=== PATIENT | female | born 1935 | race Caucasian/White ===

== ENCOUNTER → 2017-09-30 | Outpatient (CLI) | payer OTHER ==
[~2017-09-30] MED LIST: ACET325T96 PO; AMOX500T3 PO; ASPI81TA28 PO; FURO-85 PO; HUMALOG INJ; INSDGI INJ; LEVO200T PO; LOSA1TAB38 PO; ROSU40TA PO; VITAMIN B12 INJ
--- NOTE | 2017-09-30 15:35 | DIAGNOSTIC IMAGING REPORT ---
R INJ MAJOR GRACIELAT SHLDR,HIP,KNEE CLINICAL HISTORY: 82 years-old Female presenting with RT HIP PAIN,SWELLING *ASPIRATION. COMPARISON: None. PROCEDURE: The risks, benefits, and alternatives to the procedure were discussed with the patient. Written informed consent was obtained. The patient was placed supine on the fluoroscopy table, and a right hip aspiration was performed under fluoroscopic guidance. The area was prepped and draped in the usual sterile fashion. The skin and soft tissues anesthetized with local 1% lidocaine. The right hip joint was accessed utilizing a 20-gauge needle. An attempt at immediate aspiration yielded no fluid. Approximately 1 mL of Optiray 300 was injected into the joint space under fluoroscopic guidance to confirm intra-articular positioning. Subsequently, a 5 mL of sterile saline was injected into the joint. Again, aspiration did not yield return of fluid. The procedure was well tolerated without immediate complication. Fluoroscopy dosage (mGy): Not available. Fluoroscopy time: 15 seconds. Number of fluoroscopic spot images: 0. IMPRESSION: Technically successful aspiration attempt of the right hip under fluoroscopic guidance, although no return of fluid noted. Electronically signed by: Alvin Antunez M.D. 09/30/2017 3:34 PM Dictated Date/Time: 09/30/2017 3:32 PM
== END | disposition home or self-care (01) ==
LOC: C.RADBC 13:26
DX: Z96.641 Presence of right artificial hip joint (principal)

== ENCOUNTER 2017-10-04 08:14 | Inpatient (IN) | payer OTHER ==
[2017-09-30 09:21] VITALS: BMI 37.0
--- NOTE | 2017-09-30 09:59 | PAT Medication Instructions ---
Service Date Sep 30, 2017. Current Home Medication List Acetaminophen Tab (Tylenol), 650 MG PO BID PRN for RN Amoxicillin (Amoxil), 500 MG PO TID Aspirin (Aspirin Ec), 81 MG PO QAM Furosemide (Lasix), 20 MG PO 2-3XWEEK Insulin Glargine (Lantus), 40 UNITS INJ HS Levothyroxine Sodium (Synthroid), 200 MCG PO QAM Losartan Potassium (Cozaar), 100 MG PO QAM Rosuvastatin Calcium (Crestor), 40 MG PO HS [Humalog], 1 DOSE INJ SC [Vitamin B12], 1 DOSE INJ MONTHLY Medication Instructions For Your Scheduled Surgery Amoxicillin (Amoxil), 500 MG PO TID (to be completed prior to surgery) [Vitamin B12], 1 DOSE INJ MONTHLY (continue as directed) - Hold the following medications the morning of surgery: Losartan Potassium (Cozaar), 100 MG PO QAM Furosemide (Lasix), 20 MG PO 2-3XWEEK [Humalog], 1 DOSE INJ SC - Take the following medications the morning of surgery with a sip of water: Levothyroxine Sodium (Synthroid), 200 MCG PO QAM Aspirin (Aspirin Ec), 81 MG PO QAM Acetaminophen Tab (Tylenol), 650 MG PO BID PRN for RN (okay to take up to 4 hours prior to surgery if needed) - Take the following medications as scheduled the night before surgery: Rosuvastatin Calcium (Crestor), 40 MG PO HS Insulin Glargine (Lantus), 40 UNITS INJ HS Acetaminophen Tab (Tylenol), 650 MG PO BID PRN for RN (if needed) [Humalog], 1 DOSE INJ SC If you have any questions please call us at [phone] or [phone] or [phone]
[2017-09-30 10:16] LABS: PTT PATIENT 25.7 SECONDS (21.0-31.0)
[2017-09-30 10:27] LABS: ALBUMIN 3.1 gm/dl (3.4-5.0); CALCIUM 9.5 mg/dl (8.5-10.1); CREATININE 1.65 mg/dl (0.60-1.20); POTASSIUM 4.8 mmol/L (3.5-5.1)
[2017-09-30 10:47] LABS: HEMOGLOBIN A1C 6.7 % (4.5-5.6)
--- NOTE | 2017-10-02 15:38 | HISTORY & PHYSICAL EXAMINATION ---
DATE OF ADMISSION: 09/30/2017 CHIEF COMPLAINT: Right hip pain status post previous total hip arthroplasty. HISTORY OF PRESENT ILLNESS: The patient is an 82-year-old female who had her right total hip arthroplasty by an outside physician approximately 2 years ago. She has been seen and evaluated recently for increasing right hip pain. X-rays are grossly within normal limits. She had blood work with a normal CRP and a mildly elevated sed rate. She had attempted hip aspiration under fluoroscopy, but the radiologist was unable to aspirate any fluid. She had a bone scan, which was suggestive of possible loosening of the femoral component. She is now scheduled for a right total hip revision femoral stem, possible complete hip revision. PAST MEDICAL HISTORY: Bradycardia, type 2 diabetes, stage IV chronic kidney disease, depression, obesity, hyperlipidemia. PAST SURGICAL HISTORY: Right hip as above. MEDICATIONS: Synthroid 200 mcg daily, vitamin D 50,000 units weekly, furosemide 20 mg daily p.r.n., losartan potassium 100 mg half tablet daily, Humalog insulin per sliding scale, Lantus insulin 35 units at bedtime, Crestor 20 mg daily, aspirin 81 mg daily. ALLERGIES: INCLUDE ACTOS AND ZETIA. SOCIAL HISTORY AND REVIEW OF SYSTEMS: Noncontributory. PHYSICAL EXAMINATION: GENERAL: A well-nourished, well-developed female who appears her stated age. HEENT: Normocephalic and atraumatic, extraocular movements intact, oropharynx pink and moist. NECK: Supple without adenopathy. LUNGS: Clear to auscultation bilaterally. HEART: Regular rate and rhythm. ABDOMEN: Soft, nontender, nondistended. EXTREMITIES: The upper extremities within normal limits. The right hip demonstrates painful active and passive range of motion. X-RAYS: X-rays were reviewed. She has a total hip in place, which is grossly aligned. The bone scan is reviewed and shows increased uptake about the femoral aspect, possibly consistent with aseptic loosening of the femoral component. ASSESSMENT: Right hip pain status post previous hip arthroplasty, likely aseptic loosening femoral component. PLAN: Risks versus benefits were discussed, consent was obtained. The patient's primary care physician is Dr. Angeles. We will proceed with right hip arthroplasty revision femoral stem, possible complete revision upon preoperative workup and medical clearance.
[2017-10-04] VITALS (8 sets, daily range): BP systolic 116–154; BP diastolic 47–79; PULSE 51–61; TEMP 36.3–36.8; O2SAT 96–100; Ht 175.3 cm; Wt 113.8 kg
[~2017-10-04] VITALS: Ht 175.3 cm; Wt 113.8 kg
[2017-10-04] MEDS: TRANEXAMIC ACID INJ 1,000 MG in SYRINGE 0 ML IV SCH ×2 (06:30→11:05)
[~2017-10-04 08:14] MED LIST changes: +ACETAMINOPHEN 500 MG TAB PO SCH; +BUPIVACAINE 0.5 % 5 MG/1 ML PF 10ML VIAL ONE; +CEFAZOLIN 2000MG IV PUSH 10 ML IV SCH; +CeleBREX 200 MG CAP PO SCH; +DEXAMETHASONE 4 MG TAB PO SCH; +FAMOTIDINE 20 MG TAB PO SCH; +FENTANYL CITRATE INJ 50 MCG/1 ML 2 ML VIAL ONE; +GABAPENTIN 300 MG CAP PO SCH; +LACTATED RINGER'S 1000ML IV SCH; +METOCLOPRAMIDE HCL 10 MG TAB PO SCH; +MIDAZOLAM HCL 1 MG/ML 2ML VIAL ONE; +ROPIVACAINE 5MG/ML 30 ML 150 MG, BUPIVACAINE 0.5% MPF INJ 30 ML, EpINEphrine HCL INJ 0.... INFIL SCH; +SODIUM CHLORIDE 0.9% 1000ML 1,000 ML IV SCH; +TRANEXAMIC ACID INJ 1,000 MG in SYRINGE 0 ML IV SCH
--- NOTE | 2017-10-04 09:56 | History & Physical Bridge Note ---
H&P Re-Evaluation Bridge Note: I have examined the patient, reviewed the History & Physical and in the interval since the performance of the History & Physical I have noted the following changes of clinical significance: No changes noted
[2017-10-04] MEDS ORDERED: MIDAZOLAM HCL 1 MG/ML 2ML VIAL ONE (10:08)
[2017-10-04] MEDS ORDERED: LABETALOL HCL IV 5 MG/ML 20ML IV PRN (11:15)
[2017-10-04] MEDS ORDERED: ONDANSETRON INJ 2 MG/ML 2 ML VIAL IV PRN ×2 (11:15→13:15)
[2017-10-04] MEDS ORDERED: FENTANYL CITRATE INJ 50 MCG/1 ML 2 ML VIAL IV PRN (11:15)
[2017-10-04] MEDS ORDERED: HYDROmorphone INJ 1 MG/ML SYR IV PRN (11:15)
[2017-10-04] MEDS ORDERED: EpHEDrine SULFATE INJ 50 MG/ML AMP IV PRN (11:15)
[2017-10-04] MEDS ORDERED: ATROPINE SULFATE 0.1 MG/ML 5ML SYR IV PRN (11:15)
[2017-10-04] MEDS ORDERED: MEPERIDINE HCL 25 MG/ML CARP IV PRN (11:15)
[2017-10-04] MEDS ORDERED: BACITRACIN 50000 UNIT VIAL ONE (11:35)
[2017-10-04] MEDS ORDERED: POVIDONE-IODINE OP SOLN 30 ML BTL ONE (12:36)
--- NOTE | 2017-10-04 13:14 | OPERATIVE REPORT ---
DATE OF OPERATION: 10/04/2017 PREOPERATIVE DIAGNOSIS: Aseptic loosening, right total hip femur component. POSTOPERATIVE DIAGNOSIS: Aseptic loosening, right total hip femur component. PROCEDURE: Revision right femoral component. SURGEON: Dr. Gatica. STORAGE BATTERY INSPECTOR: Cachorro Pope PA-C. ANESTHESIA: Spinal. COMPLICATIONS: None. OPERATION AND FINDINGS: DESCRIPTION OF PROCEDURE: Following induction of spinal anesthesia, the patient was placed in left lateral decubitus position and the previously made right Gavin-Langenbeck incision was reopened. Subcutaneous tissue was sharply dissected. Electrocautery was used for hemostasis. Fascia was incised throughout the length of the wound and Bovie was carried down along the posterior aspect of the femur until the joint was encountered. Some cloudy joint fluid was noted and this was sampled for culture, Gram stain and cell count. The hip was dislocated and the femoral stem was found be grossly loose. Soft tissue was removed from the proximal end of the femur, exposing the femoral stem and a hook slap hammer was utilized to remove the stem which came immediately. Attention was turned to the acetabulum which was inspected and was found to be intact with no evidence of wear. The attention was then turned once again to the canal where reverse curettes were used to remove the pseudomembrane and brush pulsatile oceanographer assistant was used to additionally cleanse the canal. T-handled rasp was used to open the femoral canal and sequential raspings for the secure fit femoral stem were taken up to a size 7, which gave good fit and fill. A trial reduction was carried out with a 127-degree offset neck. The +0 x 36 mm femoral head gave good reproduction of soft tissue tension, excellent hip stability and equalization of leg length. The trial was removed. The final stem and head were impacted into position. Hip was thoroughly irrigated with pulsatile irrigation. Periarticular joint mix was utilized and the wound was closed over a Hemovac drain. Sterile dressing of Adaptic, 4x4s, and a Silverlon dressing was placed after closure of the skin with ZipLine. The patient tolerated the procedure well. I attest to the content of the Intraoperative Record and any orders documented therein. Any exception s are noted below.
[2017-10-04] MEDS ORDERED: MAGNESIUM HYDROXIDE SUSP 30 ML UDC PO PRN (13:15)
[2017-10-04] MEDS ORDERED: MoRPHine SULFATE 4 MG/ML 1 ML CARP\\VIAL IV PRN (13:15)
[2017-10-04] MEDS ORDERED: MoRPHine SULFATE 2 MG/ML CARP IV PRN (13:15)
[2017-10-04] MEDS ORDERED: TRAMADOL HCL 50 MG TAB PO PRN (13:15)
[2017-10-04] MEDS ORDERED: BISACODYL 10 MG SUPP PR PRN (13:15)
[2017-10-04] MEDS ORDERED: ALUMINUM/MAGNESIUM/SIMETH (MAALOX MAX) 30 ML UDC PO PRN (13:15)
--- NOTE | 2017-10-04 13:44 | DIAGNOSTIC IMAGING REPORT ---
R PELVIS/UNILATERAL HIP 1 VIEW HISTORY: 82 years-old Female IN PACU - A/P PELVIS and LATERAL HIP INCLUDING ALL OF IMPLANT status post right hip arthroplasty COMPARISON: None available TECHNIQUE: AP view the pelvis with crosstable lateral view of the right hip FINDINGS: The patient is slightly rotated. Postoperative changes compatible with right total hip arthroplasty are noted with surgical drain in place. There are expected changes of post operative soft tissue swelling and deep tissue air about the right hip. No evidence of periprosthetic fracture, malalignment or retained foreign body. Moderate degenerative changes of the left hip. Vascular calcifications noted. IMPRESSION: Status post right hip total joint arthroplasty without complication identified. The above report was generated using voice recognition software. It may contain grammatical, syntax or spelling errors. Electronically signed by: Trino Holm M.D. 10/04/2017 1:43 PM Dictated Date/Time: 10/04/2017 1:42 PM
--- NOTE | 2017-10-04 14:21 | Anesthesiology Progress Note ---
Anesthesia Post Op Note Date & Time Oct 04, 2017 at 14:20 Vital Signs Pain Intensity: 0 Vital Signs Past 12 Hours Date Time Temp Pulse Resp B/P (MAP) Pulse Ox O2 Delivery O2 Flow Rate FiO2 10/04/17 13:50 36.8 54 16 124/59 99 Nasal Cannula 2 10/04/17 13:40 50 16 116/49 99 Nasal Cannula 2 10/04/17 13:30 50 16 116/53 100 Nasal Cannula 2 10/04/17 13:20 52 16 130/46 100 Nasal Cannula 2 10/04/17 13:12 37.2 58 16 148/59 93 Room Air 10/04/17 09:09 36.8 61 18 154/55 99 Room Air Notes Mental Status: alert / awake / arousable, participated in evaluation Pt Amnestic to Procedure: Yes Nausea / Vomiting: adequately controlled Pain: adequately controlled Airway Patency, RR, SpO2: stable & adequate BP & HR: stable & adequate Hydration State: stable & adequate Neuraxial Anesthesia: was administered, sensory block is resolving Anesthetic Complications: no major complications apparent
[2017-10-04] MEDS: SODIUM CHLORIDE 0.9% 1000ML 1,000 ML IV SCH (16:04)
[2017-10-04] MEDS: ACETAMINOPHEN 500 MG TAB PO SCH ×2 (16:04→23:50)
--- NOTE | 2017-10-04 16:49 | Medical Consult ---
Consultation Date of Consultation: Oct 04, 2017. Attending Physician: Regino Gatica M.D. History of Present Illness Pmhx HLD, DM, CKD IV, hypothyroid, htn, Past Medical/Surgical History Ms. Bee is a very pleasant 82 year old woman here for revision of loosening hardware in her right hip 10/04. She does not have any complaints at this time, no pain or nausea. She is starting to get feeling back in her lower extremities. She has not started passing gas yet following surgery Social History Smoking Status: Former Smoker (light smoker until 28 years ago) Smokeless Tobacco Use: No Alcohol Use: none Housing Status: lives alone Occupation Status: retired Allergies Coded Allergies: Atorvastatin (Verified Allergy, Unknown, UNKNOWN, 09/30/17) Ezetimibe (Verified Allergy, Unknown, UNKNOWN, 09/30/17) Pioglitazone (Verified Allergy, Unknown, UNKNOWN, 09/30/17) Duloxetine (Verified Adverse Reaction, Intermediate, NAUSEA VOMITING, ) NSAIDs (Verified Adverse Reaction, Intermediate, STAGE 4 KIDNEY DISEASE- TO AVOID NSAIDS, 10/03/17) Current Inpatient Medications Current Inpatient Medications Medications (Trade) Dose Ordered Sig/Dago Route Start Time Stop Time Status Last Admin Dose Admin Sodium Chloride 1,000 ml @ 15 mls/hr Q24H IV 10/04/17 06:00 10/05/17 05:59 10/04/17 09:41 15 MLS/HR Lactated Ringer's 1,000 ml @ 60 mls/hr [id number] IV 10/04/17 06:00 10/04/17 22:39 Cefazolin Sodium 10 ml @ 2.5 mls/min PREOP IV 10/04/17 06:00 10/04/17 18:00 10/04/17 11:45 2.5 MLS/MIN Acetaminophen (Tylenol Tab) 1,000 mg PREOP PO 10/04/17 06:00 10/04/17 18:00 10/04/17 09:41 1,000 MG Celecoxib (CeleBREX CAP) 200 mg PREOP PO 10/04/17 06:00 10/04/17 18:00 10/04/17 09:42 200 MG Dexamethasone (Decadron Tab) 8 mg PREOP PO 10/04/17 06:00 10/04/17 18:00 10/04/17 09:43 8 MG Famotidine (Pepcid Tab) 20 mg PREOP PO 10/04/17 06:00 10/04/17 18:00 10/04/17 09:44 20 MG Gabapentin (Neurontin Cap) 300 mg PREOP PO 10/04/17 06:00 10/04/17 18:00 10/04/17 09:43 300 MG Metoclopramide HCl (Reglan Tab) 10 mg PREOP PO 10/04/17 06:00 10/04/17 18:00 10/04/17 09:43 10 MG Insulin Glargine (Lantus Solostar Pen) 40 units HS SQ 10/04/17 21:00 11/03/17 20:59 Levothyroxine Sodium (Synthroid Tab) 200 mcg DAILYBB PO 10/05/17 06:00 11/04/17 05:59 Losartan Potassium (coZAAR TAB) 100 mg QAM PO 10/05/17 09:00 11/04/17 08:59 Rosuvastatin Calcium (Crestor Tab) 40 mg HS PO 10/04/17 21:00 11/03/17 20:59 Morphine Sulfate (MoRPHine SULFATE INJ) 2 mg Q4HWA PRN IV 10/04/17 13:15 10/18/17 13:14 Morphine Sulfate (MoRPHine SULFATE INJ) 4 mg Q4HWA PRN IV 10/04/17 13:15 10/18/17 13:14 Sodium Chloride 1,000 ml @ 100 mls/hr Q10H IV 10/04/17 13:13 10/05/17 13:12 10/04/17 16:04 100 MLS/HR Oxycodone HCl (Roxicodone Immediate Rel Tab) 1 TABLET FOR PAIN RATING... Q4H PRN PO 10/04/17 13:15 10/18/17 13:14 Acetaminophen (Tylenol Tab) 1,000 mg Q8H PO 10/04/17 16:00 11/03/17 15:59 10/04/17 16:04 1,000 MG Magnesium Hydroxide (Milk Of Magnesia Susp) 30 ml Q6H PRN PO 10/04/17 13:15 11/03/17 13:14 Bisacodyl (Dulcolax Supp) 10 mg DAILY PRN AR 10/04/17 13:15 11/03/17 13:14 Senna (Senokot Tab) 17.2 mg HS PO 10/04/17 21:00 11/03/17 20:59 Docusate Sodium (coLACE CAP) 100 mg BID PO 10/04/17 21:00 11/03/17 20:59 Al Hydrox/Mg Hydrox/Simethicone (Maalox Max Susp) 15 ml Q4H PRN PO 10/04/17 13:15 11/03/17 13:14 Multivitamins (Multivitamin Tab) 1 tab QAM PO 10/05/17 09:00 11/04/17 08:59 Ondansetron HCl (Zofran Inj) 4 mg Q6H PRN IV 10/04/17 13:15 11/03/17 13:14 Ferrous Gluconate (Ferrous Gluconate Tab) 324 mg TIDM PO 10/04/17 17:45 11/03/17 17:59 Pantoprazole Sodium (Protonix Tab) 40 mg QAM PO 10/05/17 09:00 11/04/17 08:59 Tramadol HCl (Ultram Tab) 1 TABLET FOR PAIN RATING... Q4H PRN PO 10/04/17 13:15 11/03/17 13:14 Cefazolin Sodium 2000 mg/Syringe 10 ml @ 2.5 mls/min Q8H IV 10/04/17 20:00 10/05/17 04:03 Aspirin (Ecotrin Tab) 81 mg BID PO 10/04/17 21:00 11/03/17 20:59 Insulin Aspart (novoLOG ASPART) SLIDING SCALE PARAMETER ACHS SC 10/04/17 17:15 11/03/17 17:14 Review of Systems Constitutional: No fever, No chills Respiratory: No cough, No sputum, No shortness of breath Cardiovascular: No chest pain Abdomen: No pain, No nausea, No vomiting, No diarrhea Musculoskeletal: No joint pain Genitourinary - Female: No dysuria Physical Exam Date Time Temp Pulse Resp B/P (MAP) Pulse Ox O2 Delivery O2 Flow Rate FiO2 10/04/17 16:00 36.4 60 17 145/70 (95) 99 Room Air 10/04/17 15:00 36.6 56 16 133/75 (94) 100 Nasal Cannula 2.0 10/04/17 14:00 100 Nasal Cannula 2.0 10/04/17 14:00 36.3 51 18 116/47 (70) 100 Nasal Cannula 2.0 10/04/17 13:50 36.8 54 16 124/59 99 Nasal Cannula 2 10/04/17 13:40 50 16 116/49 99 Nasal Cannula 2 10/04/17 13:30 50 16 116/53 100 Nasal Cannula 2 10/04/17 13:20 52 16 130/46 100 Nasal Cannula 2 10/04/17 13:12 37.2 58 16 148/59 93 Room Air 10/04/17 09:09 36.8 61 18 154/55 99 Room Air General: no distress Eyes: normal inspection, PERLL Respiratory: chest non tender, clear to auscultation, normal breath sounds, no respiratory distress, no accessory muscle use Cardiac: regular rate and rhythm, no rub or gallop, no murmur, no edema, no jvd , weak pulses GI/: active bowel sounds, no abd pain or tenderness, soft, non distended Extremities: normal range of motion, normal strength, non tender Neuro/Psych: alert and oriented x 3, normal mood and affect Skin: normal color, dry Laboratory Results Last 24 Hours Test 10/04/17 09:18 10/04/17 13:20 Bedside Glucose 143 mg/dl 142 mg/dl Assessment & Plan Ms. Bee is a very pleasant 82 year old woman here for revision of loosening hardware in her right hip 10/04. 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 Discussed with Cande Aguilar NP and agree with findings and plan as documented in the note. Any exceptions or clarifications are listed here: None Pt is doing well post operatively, will have basal bolus insulin, continue to watch ckd and hold arb for one day vitals are stable car is regular lung is clear continue basal bolus insulin, follow Cr, and watch blood pressure while holding meds Documented By: Quique Meneses
[2017-10-04] MEDS: FERROUS GLUCONATE 324 MG TAB PO SCH (18:18)
[2017-10-04] MEDS: INSULIN ASPART 100 UNITS/ML 3 ML PEN SC SCH ×2 (18:29→21:00)
[2017-10-04] MEDS: CEFAZOLIN IV 2,000 MG in SYRINGE 0 ML IV SCH (19:48)
[2017-10-04] MEDS: ROSUVASTATIN CALCIUM 20 MG TAB PO SCH (20:54)
[2017-10-04] MEDS: ASPIRIN 81 MG ECTAB PO SCH (20:54)
[2017-10-04] MEDS: SENNA 8.6 MG TAB PO SCH (20:54)
[2017-10-04] MEDS: DOCUSATE SODIUM 100 MG CAP PO SCH (20:54)
[2017-10-04] MEDS: INSULIN GLARGINE SOLOSTAR 100 UNITS/ML 3 ML PEN SQ SCH (21:00)
[2017-10-05] MEDS: SODIUM CHLORIDE 0.9% 1000ML 1,000 ML IV SCH ×2 (01:44→08:55)
[2017-10-05] MEDS: CEFAZOLIN IV 2,000 MG in SYRINGE 0 ML IV SCH (03:51)
[2017-10-05 04:07] VITALS: BP 126/64; PULSE 54; TEMP 36.4; O2SAT 96
[2017-10-05] MEDS: LEVOTHYROXINE 200 MCG TAB PO SCH (05:36)
[2017-10-05 07:12] VITALS: BP 132/68; PULSE 59; TEMP 36.5; O2SAT 97
[2017-10-05] MEDS: ACETAMINOPHEN 500 MG TAB PO SCH ×3 (07:13→23:31)
[2017-10-05 08:10] LABS: BASO % 0.1 %; BASO ABS # 0.01 K/uL (0-0.2); HEMATOCRIT 33.4 % (37-47); HEMOGLOBIN 10.7 g/dL (12.0-16.0); IG# 0.05 K/uL (0.00-0.02); LYMPH ABS # 1.29 K/uL (1.2-3.4); MEAN CELL VOLUME 96.8 fL (80-100); MEAN PLATELET VOLUME 9.8 fL (7.4-10.4); MONO % 5.4 %; NEUT % 84.1 %; NEUT ABS # 10.87 K/uL (1.4-6.5); PLATELET COUNT 196 K/uL (130-400); RED CELL DISTRIBUTION WIDTH CV 14.3 % (11.5-14.5); RED CELL DISTRIBUTION WIDTH SD 50.7 fL (36.4-46.3); WHITE BLOOD COUNT 12.92 K/uL (4.8-10.8)
[2017-10-05 08:42] LABS: CALCIUM 8.5 mg/dl (8.5-10.1); CREATININE 1.77 mg/dl (0.60-1.20); POTASSIUM 4.6 mmol/L (3.5-5.1)
[2017-10-05] MEDS: ASPIRIN 81 MG ECTAB PO SCH ×2 (08:46→20:32)
[2017-10-05] MEDS: DOCUSATE SODIUM 100 MG CAP PO SCH ×2 (08:46→20:32)
[2017-10-05] MEDS: MULTIVITAMIN TAB PO SCH (08:46)
[2017-10-05] MEDS: FERROUS GLUCONATE 324 MG TAB PO SCH ×3 (08:47→17:33)
[2017-10-05] MEDS: PANTOprazole SOD 40 MG TAB PO SCH (08:47)
[2017-10-05] MEDS: OXYCODONE HCL IR 5 MG TAB (IMMEDIATE RELEASE) PO PRN (08:50)
[2017-10-05] MEDS: INSULIN ASPART 100 UNITS/ML 3 ML PEN SC SCH ×4 (08:53→21:56)
[2017-10-05] MEDS ORDERED: LOSARTAN POTASSIUM 50 MG TAB PO SCH (09:00)
--- NOTE | 2017-10-05 10:22 | Orthopedic Progress Note ---
Orthopedic Progress Note Date of Service Oct 05, 2017. Subjective Post OP Day: 2 Reports: feeling well, Denies: chest pain, SOB, nausea / vomiting, light headedness, calf pain Objective calves soft nontender, N/V intact, hip located, capillary refill less than 2 sec., dressing C/D/I, A&O x3, toes mobile Date Time Temp Pulse Resp B/P (MAP) Pulse Ox O2 Delivery O2 Flow Rate FiO2 10/05/17 07:15 Room Air 10/05/17 07:12 36.5 59 14 132/68 (89) 97 Room Air 10/05/17 04:07 36.4 54 18 126/64 (84) 96 Room Air 10/04/17 23:00 36.4 53 18 123/56 (78) 97 Room Air 10/04/17 19:58 36.4 54 17 121/74 (90) 96 Room Air 10/04/17 19:50 Room Air 10/04/17 17:09 36.8 54 16 142/79 (100) 100 Room Air 10/04/17 16:00 36.4 60 17 145/70 (95) 99 Room Air 10/04/17 15:40 100 Room Air 10/04/17 15:00 36.6 56 16 133/75 (94) 100 Nasal Cannula 2.0 10/04/17 14:00 100 Nasal Cannula 2.0 10/04/17 14:00 36.3 51 18 116/47 (70) 100 Nasal Cannula 2.0 10/04/17 13:50 36.8 54 16 124/59 99 Nasal Cannula 2 10/04/17 13:40 50 16 116/49 99 Nasal Cannula 2 10/04/17 13:30 50 16 116/53 100 Nasal Cannula 2 10/04/17 13:20 52 16 130/46 100 Nasal Cannula 2 10/04/17 13:12 37.2 58 16 148/59 93 Room Air Laboratory Results 24 Hours: Test 10/05/17 07:24 White Blood Count 12.92 K/uL Red Blood Count 3.45 M/uL Hemoglobin 10.7 g/dL Hematocrit 33.4 % Mean Corpuscular Volume 96.8 fL Mean Corpuscular Hemoglobin 31.0 pg Mean Corpuscular Hemoglobin Concent 32.0 g/dl Platelet Count 196 K/uL Mean Platelet Volume 9.8 fL Neutrophils (%) (Auto) 84.1 % Lymphocytes (%) (Auto) 10.0 % Monocytes (%) (Auto) 5.4 % Eosinophils (%) (Auto) 0.0 % Basophils (%) (Auto) 0.1 % Neutrophils # (Auto) 10.87 K/uL Lymphocytes # (Auto) 1.29 K/uL Monocytes # (Auto) 0.70 K/uL Eosinophils # (Auto) 0.00 K/uL Basophils # (Auto) 0.01 K/uL Assessment & Plan Assessment: POD#1 SP REVISION RIGHT RANDY Plan: PT/OT DVT PROPH- ASA 81MG BID PAIN MANAGEMENT DC PLANNING- [facility]
--- NOTE | 2017-10-05 11:23 | Hospitalist Progress Note ---
Hospitalist Progress Note Date of Service Oct 05, 2017. (Neris Weeks PA-C) Subjective Pt evaluation today including: conversation w/ patient, physical exam, chart review, lab review, review of studies Pain: R hip pain occassionally PO Intake: good Voiding: no voiding problems The patient was seen and examined this morning. Patient reports feeling well she is currently sitting upright in bedside chair. She reports her right hip pain is improving, she has been ambulating from bed to the bathroom without difficulty. She has been using a walker for assistance. The patient is from home, lives alone and anticipates going to [facility] for PT/OT in [place] at time of discharge. Patient denies bowel movement since surgery, which was approximately 2 days ago but she is passing gas. Patient notes that it is typical for her to not have a bowel movement more than every other day. She was encouraged to drink fluids, prune juice and continue stool softeners and fiber bulking agents while taking narcotics for pain. Additional Comments: Constitutional: No fever, sweats or chills Eyes: No diplopia, no worsening or blurred vision ENT: normal hearing, no trouble swallowing Respiratory: No cough, sputum, dyspnea at rest or on exertion Cardiovascular: No chest pain, tightness or palpitations Abdomen: No pain, nausea, vomiting, diarrhea or constipation Musculoskeletal: As per history of present illness, No joint pain, calf pain, occasionally has swelling in BLE, nonpitting. SCDs seem to be improving swelling. Neurologic: No weakness, numbness/tingling, or balance problems Psychiatric: No anxiety or depression Skin: No rash or itch (Neris Weeks PA-C) Objective Vital Signs Date Time Temp Pulse Resp B/P (MAP) Pulse Ox O2 Delivery O2 Flow Rate FiO2 10/05/17 07:15 Room Air 10/05/17 07:12 36.5 59 14 132/68 (89) 97 Room Air 10/05/17 04:07 36.4 54 18 126/64 (84) 96 Room Air 10/04/17 23:00 36.4 53 18 123/56 (78) 97 Room Air 10/04/17 19:58 36.4 54 17 121/74 (90) 96 Room Air 10/04/17 19:50 Room Air 10/04/17 17:09 36.8 54 16 142/79 (100) 100 Room Air 10/04/17 16:00 36.4 60 17 145/70 (95) 99 Room Air 10/04/17 15:40 100 Room Air 10/04/17 15:00 36.6 56 16 133/75 (94) 100 Nasal Cannula 2.0 10/04/17 14:00 100 Nasal Cannula 2.0 10/04/17 14:00 36.3 51 18 116/47 (70) 100 Nasal Cannula 2.0 10/04/17 13:50 36.8 54 16 124/59 99 Nasal Cannula 2 10/04/17 13:40 50 16 116/49 99 Nasal Cannula 2 10/04/17 13:30 50 16 116/53 100 Nasal Cannula 2 10/04/17 13:20 52 16 130/46 100 Nasal Cannula 2 10/04/17 13:12 37.2 58 16 148/59 93 Room Air (Neris Weeks PA-C) Physical Exam Notes: General: awake, alert, no apparent distress Head: Normocephalic, atraumatic ENT: PERRL, EOMI, no pharyngeal exudate, mucous membranes moist Chest: Clear to auscultation, on room air, no adventitious breath sounds Cardiac: Regular rate and rhythm, no murmur, no JVD, normal peripheral pulses, good capillary refill Abdominal: NABS x 4 quadrants, soft, nontender to palpation, no rebound, guarding or tenderness Extremities: Right hip with Hemovac drain in place, dressing C/D/I, otherwise normal inspection, no peripheral edema or erythema, calfs nontender to palpation mild BLE edema nonpitting Psych: Normal mood and affect Neuro: AAO x 3, strength intact bilaterally and related 5/5, no motor deficits, speech is clear, no peripheral sensory deficits (Neris Weeks PA-C) Laboratory Results Last 24 Hours Test 10/04/17 13:20 10/04/17 17:38 10/04/17 20:41 10/05/17 07:24 Bedside Glucose 142 mg/dl 243 mg/dl 277 mg/dl White Blood Count 12.92 K/uL Red Blood Count 3.45 M/uL Hemoglobin 10.7 g/dL Hematocrit 33.4 % Mean Corpuscular Volume 96.8 fL Mean Corpuscular Hemoglobin 31.0 pg Mean Corpuscular Hemoglobin Concent 32.0 g/dl Platelet Count 196 K/uL Mean Platelet Volume 9.8 fL Neutrophils (%) (Auto) 84.1 % Lymphocytes (%) (Auto) 10.0 % Monocytes (%) (Auto) 5.4 % Eosinophils (%) (Auto) 0.0 % Basophils (%) (Auto) 0.1 % Neutrophils # (Auto) 10.87 K/uL Lymphocytes # (Auto) 1.29 K/uL Monocytes # (Auto) 0.70 K/uL Eosinophils # (Auto) 0.00 K/uL Basophils # (Auto) 0.01 K/uL RDW Standard Deviation 50.7 fL RDW Coefficient of Variation 14.3 % Immature Granulocyte % (Auto) 0.4 % Immature Granulocyte # (Auto) 0.05 K/uL Sodium Level 137 mmol/L Potassium Level 4.6 mmol/L Chloride Level 108 mmol/L Carbon Dioxide Level 19 mmol/L Anion Gap 10.0 mmol/L Blood Urea Nitrogen 31 mg/dl Creatinine 1.77 mg/dl Est Creatinine Clear Calc Drug Dose 33.6 ml/min Estimated GFR () 30.7 Estimated GFR (Non- 26.5 BUN/Creatinine Ratio 17.5 Random Glucose 179 mg/dl Calcium Level 8.5 mg/dl Test 10/05/17 08:08 Bedside Glucose 154 mg/dl (Neris Weeks, ISAAC) Assessment and Plan Ms. Bee is a very pleasant 82 year old woman here for revision of loosening hardware in her right hip 10/04. Post op - monitor for blood loss - Hbg is stable at 10.7 - bowel regimen, dvt prophylaxis and pain control per primary - Anticipate discharge possibly on Saturday per patient report, to rehabilitation at [place] in [place]. DM - A1c 09/30= 6.7 - continue lantus 40 U HS - Sliding scale changed to tighten the carb coverage. She had slightly elevated glucose last evening but appears to be better today in 150s. If needed further tighten coverage - bsg ac&hs - continue gabapentin for diabetic neuropathy - patient had trialed Cymbalta in the beginning of August however suffered severe adverse effects with nausea and vomiting. She did see good improvement in neuropathy while being on the medication but was only able to tolerate it for 9-10 days. After that point she was hospitalized in [place] for severe dehydration and bradycardia secondary to nausea/vomiting. CKD IV - avoid nephrotoxic agents - Cr. 1.77 and appears to be around baseline. HTN - blood pressures well controlled, slightly bradycardic - restarted losartan 100 mg daily, and Crestor 40 mg daily Hypothyroid - continue home dose levothyroxine DVT ppx: ASA 81 mg BID, teds, scds CODE STATUS: FULL CODE (Neris Weeks, ISAAC) Reviewed: Pt Seen/Exam by Me (Janna Arce MD) History Physician Classification Counselor Supervision Note: I interviewed and examined the patient. Discussed with CAROLYN Weeks and agree with findings and plan as documented in the note. Any exceptions or clarifications are listed here: Pt doing very well, some soreness in rt hip. Denies CP. SHe has her usual chronic dyspnea on exertion. Review of outpt records reveals dx also of mild- mod nonobstructive CAD on cath 2014 after having abnormal Nuc Med Stress prior to last hip replacement. SHe is being medically managed by her Consulting Services Manager for this, but recently had to stop her metoprolol for the bradycardia mentioned above found at admission to [facility] for N/V last month. 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 Growing GNRs in culture from joint-to be managed by Ortho, not currently on abx- unclear if infection was suspected intraoperatively? Cloudy joint fluid noted in op report -System Specialist at baseline, ok to restart losartan as ordered for tomorrow -continue ASA, statin, losartan for CAD and HTN -hgb not significantly dropped, no need for transfusion likely -glucose improved today ASA 81 bid for DVT proph Documented By: Janna Arce (Janna Arce MD)
[2017-10-05 14:01] VITALS: BP 107/68; PULSE 58; TEMP 36.6; TEMP 36.7; O2SAT 97
[2017-10-05] MEDS ORDERED: GLUCAGON FOR INJ 1 MG VIAL SQ PRN (14:30)
[2017-10-05] MEDS ORDERED: DEXTROSE 50% 50 ML SYR IV PRN (14:30)
[2017-10-05] MEDS ORDERED: GLUCOSE 10 TABS/TUBE PO PRN (14:30)
[2017-10-05] MEDS ORDERED: GLUCOSE 40% GEL 15 GM TUBE PO PRN (14:30)
[2017-10-05 15:01] VITALS: BP 108/69; PULSE 47; TEMP 36.6; O2SAT 99
[2017-10-05 17:38] VITALS: PULSE 56; O2SAT 99
[2017-10-05] MEDS: ROSUVASTATIN CALCIUM 20 MG TAB PO SCH (20:32)
[2017-10-05] MEDS: SENNA 8.6 MG TAB PO SCH (20:33)
[2017-10-05] MEDS: INSULIN GLARGINE SOLOSTAR 100 UNITS/ML 3 ML PEN SQ SCH (21:57)
[2017-10-05 23:00] VITALS: BP 119/75; PULSE 52; TEMP 36.3; O2SAT 97
[2017-10-06] MEDS: LEVOTHYROXINE 200 MCG TAB PO SCH (05:37)
[2017-10-06 07:30] VITALS: BP 128/67; PULSE 60; TEMP 36.4; O2SAT 98
[2017-10-06 07:58] LABS: BASO % 0.2 %; BASO ABS # 0.02 K/uL (0-0.2); EOS % 0.5 %; EOS ABS # 0.06 K/uL (0-0.5); HEMOGLOBIN 11.5 g/dL (12.0-16.0); LYMPH % 10.2 %; LYMPH ABS # 1.32 K/uL (1.2-3.4); MEAN CELL VOLUME 96.2 fL (80-100); MEAN CORPUSCULAR HEMOGLOBIN 31.6 pg (25-34); MEAN CORPUSCULAR HGB CONC 32.9 g/dl (32-36); MEAN PLATELET VOLUME 10.1 fL (7.4-10.4); MONO % 9.4 %; MONO ABS # 1.21 K/uL (0.11-0.59); NEUT % 78.9 %; NEUT ABS # 10.23 K/uL (1.4-6.5); PLATELET COUNT 199 K/uL (130-400); RED CELL DISTRIBUTION WIDTH CV 14.6 % (11.5-14.5); RED CELL DISTRIBUTION WIDTH SD 51.2 fL (36.4-46.3); WHITE BLOOD COUNT 12.94 K/uL (4.8-10.8)
[2017-10-06] MEDS: INSULIN ASPART 100 UNITS/ML 3 ML PEN SC SCH ×4 (08:00→21:00)
[2017-10-06] MEDS: OXYCODONE HCL IR 5 MG TAB (IMMEDIATE RELEASE) PO PRN ×2 (08:14→18:52)
[2017-10-06] MEDS: FERROUS GLUCONATE 324 MG TAB PO SCH ×3 (08:15→17:45)
[2017-10-06] MEDS: PANTOprazole SOD 40 MG TAB PO SCH (08:15)
[2017-10-06] MEDS: MULTIVITAMIN TAB PO SCH (08:15)
[2017-10-06] MEDS: ACETAMINOPHEN 500 MG TAB PO SCH ×2 (08:15→15:18)
[2017-10-06] MEDS: ASPIRIN 81 MG ECTAB PO SCH ×2 (08:16→19:58)
[2017-10-06] MEDS: LOSARTAN POTASSIUM 50 MG TAB PO SCH (08:16)
[2017-10-06] MEDS: DOCUSATE SODIUM 100 MG CAP PO SCH ×2 (08:16→19:57)
--- NOTE | 2017-10-06 08:26 | Orthopedic Progress Note ---
Orthopedic Progress Note Date of Service Oct 06, 2017. Subjective Post OP Day: 2 Reports: feeling well, Denies: chest pain, SOB, nausea / vomiting, light headedness, calf pain Objective calves soft nontender, N/V intact, hip located, capillary refill less than 2 sec., dressing C/D/I, A&O x3, toes mobile Date Time Temp Pulse Resp B/P (MAP) Pulse Ox O2 Delivery O2 Flow Rate FiO2 10/06/17 07:30 36.4 60 16 128/67 (87) 98 Room Air 10/06/17 07:00 Room Air 10/05/17 23:35 Room Air 10/05/17 23:00 36.3 52 18 119/75 (90) 97 Room Air 10/05/17 17:38 56 99 Room Air 10/05/17 16:20 Room Air 10/05/17 15:01 36.6 47 17 108/69 (82) 99 Room Air 10/05/17 14:01 36.6 58 16 107/68 (81) 97 Room Air Laboratory Results 24 Hours: Test 10/06/17 07:33 White Blood Count 12.94 K/uL Red Blood Count 3.64 M/uL Hemoglobin 11.5 g/dL Hematocrit 35.0 % Mean Corpuscular Volume 96.2 fL Mean Corpuscular Hemoglobin 31.6 pg Mean Corpuscular Hemoglobin Concent 32.9 g/dl Platelet Count 199 K/uL Mean Platelet Volume 10.1 fL Neutrophils (%) (Auto) 78.9 % Lymphocytes (%) (Auto) 10.2 % Monocytes (%) (Auto) 9.4 % Eosinophils (%) (Auto) 0.5 % Basophils (%) (Auto) 0.2 % Neutrophils # (Auto) 10.23 K/uL Lymphocytes # (Auto) 1.32 K/uL Monocytes # (Auto) 1.21 K/uL Eosinophils # (Auto) 0.06 K/uL Basophils # (Auto) 0.02 K/uL Assessment & Plan Assessment: POD#2 SP REVISION RIGHT RANDY Plan: PT/OT DVT PROPH- ASA 81MG BID PAIN MANAGEMENT DC PLANNING- [facility]. HOPEFULY TRANSFER SATURDAY MEDICAL MANAGEMENT
[2017-10-06 08:44] LABS: CALCIUM 8.9 mg/dl (8.5-10.1); CREATININE 1.5 mg/dl (0.60-1.20); POTASSIUM 4.3 mmol/L (3.5-5.1)
--- NOTE | 2017-10-06 11:45 | Hospitalist Progress Note ---
Hospitalist Progress Note Date of Service Oct 06, 2017. (Neris Weeks PA-C) Subjective Pt evaluation today including: conversation w/ patient, conversation w/ family , physical exam, chart review, lab review, review of studies Pain: None PO Intake: Good Voiding: no voiding problems The patient was seen and examined this morning. Patient reports feeling well. Her family is present at bedside including her son, [id number] and granddaughter. She has had 3 loose bowel movements this morning after not having any bowel movement x3 days. She has been eating and drinking well. CM is assisting with discharge planning with possible rehabilitation at [facility] vs [facility] in [place]. Additional Comments: Constitutional: No fever, sweats or chills Eyes: No diplopia, no worsening or blurred vision ENT: normal hearing, no trouble swallowing Respiratory: No cough, sputum, dyspnea at rest or on exertion Cardiovascular: No chest pain, tightness or palpitations Abdomen: No pain, nausea, vomiting, diarrhea or constipation Musculoskeletal: No joint pain, calf pain, swelling Neurologic: No weakness, numbness/tingling, or balance problems Psychiatric: No anxiety or depression Skin: No rash or itch (Neris Weeks PA-C) Objective Vital Signs Date Time Temp Pulse Resp B/P (MAP) Pulse Ox O2 Delivery O2 Flow Rate FiO2 10/06/17 07:30 36.4 60 16 128/67 (87) 98 Room Air 10/06/17 07:00 Room Air 10/05/17 23:35 Room Air 10/05/17 23:00 36.3 52 18 119/75 (90) 97 Room Air 10/05/17 17:38 56 99 Room Air 10/05/17 16:20 Room Air 10/05/17 15:01 36.6 47 17 108/69 (82) 99 Room Air 10/05/17 14:01 36.6 58 16 107/68 (81) 97 Room Air (Neris Weeks PA-C) Physical Exam Notes: General: awake, alert, no apparent distress Head: Normocephalic, atraumatic ENT: PERRL, EOMI, no pharyngeal exudate, mucous membranes moist Chest: Clear to auscultation, on room air, no adventitious breath sounds Cardiac: Regular rate and rhythm, no murmur, no JVD, normal peripheral pulses, good capillary refill Abdominal: NABS x 4 quadrants, soft, nontender to palpation, no rebound, guarding or tenderness Extremities: Right hip with Hemovac out, dressing C/D/I, otherwise normal inspection, no peripheral edema or erythema, calfs nontender to palpation mild BLE edema nonpitting Psych: Normal mood and affect Neuro: AAO x 3, speech is clear, no peripheral sensory deficits (Neris Weeks, ISAAC) Laboratory Results Last 24 Hours Test 10/05/17 12:06 10/05/17 17:21 10/05/17 20:56 10/06/17 07:33 Bedside Glucose 194 mg/dl 170 mg/dl 223 mg/dl White Blood Count 12.94 K/uL Red Blood Count 3.64 M/uL Hemoglobin 11.5 g/dL Hematocrit 35.0 % Mean Corpuscular Volume 96.2 fL Mean Corpuscular Hemoglobin 31.6 pg Mean Corpuscular Hemoglobin Concent 32.9 g/dl Platelet Count 199 K/uL Mean Platelet Volume 10.1 fL Neutrophils (%) (Auto) 78.9 % Lymphocytes (%) (Auto) 10.2 % Monocytes (%) (Auto) 9.4 % Eosinophils (%) (Auto) 0.5 % Basophils (%) (Auto) 0.2 % Neutrophils # (Auto) 10.23 K/uL Lymphocytes # (Auto) 1.32 K/uL Monocytes # (Auto) 1.21 K/uL Eosinophils # (Auto) 0.06 K/uL Basophils # (Auto) 0.02 K/uL RDW Standard Deviation 51.2 fL RDW Coefficient of Variation 14.6 % Immature Granulocyte % (Auto) 0.8 % Immature Granulocyte # (Auto) 0.10 K/uL Sodium Level 142 mmol/L Potassium Level 4.3 mmol/L Chloride Level 112 mmol/L Carbon Dioxide Level 20 mmol/L Anion Gap 10.0 mmol/L Blood Urea Nitrogen 31 mg/dl Creatinine 1.50 mg/dl Est Creatinine Clear Calc Drug Dose 39.6 ml/min Estimated GFR () 37.5 Estimated GFR (Non- 32.3 BUN/Creatinine Ratio 20.9 Random Glucose 89 mg/dl Calcium Level 8.9 mg/dl Test 11/19/17 08:04 Bedside Glucose 76 mg/dl (Neris Weeks PA-C) Assessment and Plan Ms. Bee is a very pleasant 82 year old woman here for revision of loosening hardware in her right hip 10/04. Post op - monitor for blood loss - Hbg is stable at 10.7 - bowel regimen, dvt prophylaxis and pain control per primary - Anticipate discharge possibly on Saturday per patient report, to rehabilitation at [facility] in [place]. DM - A1c 09/30= 6.7 - continue lantus 40 U HS - Sliding scale changed to tighten the carb coverage. She had slightly elevated glucose last evening but appears to be better today in 150s. If needed further tighten coverage - bsg ac&hs - continue gabapentin for diabetic neuropathy - patient had trialed Cymbalta in the beginning of August however suffered severe adverse effects with nausea and vomiting. She did see good improvement in neuropathy while being on the medication but was only able to tolerate it for 9-10 days. After that point she was hospitalized in [place] for severe dehydration and bradycardia secondary to nausea/vomiting. CKD IV - avoid nephrotoxic agents - Cr. 1.77 and appears to be around baseline. CAD - mild to moderate without needs for stenting. She is on medical management with asa, erin and statin therapy. She was taken off metoprolol during admission in [place] about 2-3 weeks ago. HTN - blood pressures well controlled, slightly bradycardic - restarted losartan 100 mg daily, and Crestor 40 mg daily Hypothyroid - continue home dose levothyroxine DVT ppx: ASA 81 mg BID, teds, scds CODE STATUS: FULL CODE Disposition: From home, likely discharge tomorrow per primary service. Hospitalist team will sign off on this patient, thank you for involving us in Mrs. Bee's care. (Neris Weeks PA-C) Reviewed: Pt Seen/Exam by Me (Janna Arce MD) History Physician Innovation Manager Supervision Note: I interviewed and examined the patient. Discussed with CAROLYN Weeks and agree with findings and plan as documented in the note. Any exceptions or clarifications are listed here: Pt currently having chills and is shivering in her bed, asked for multiple heated blankets. Denies cough or SOB, no chest pain or calf pain. Denies urinary sxs. She has had several loose BMs today and feels like she has to go again now, no abd pain. Has been using her IS. Is growing GNRs in joint fluid culture, no ID yet. Afebrile so far. 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 Growing GNRs in culture from joint-to be managed by Ortho, not currently on abx- unclear if infection was suspected intraoperatively? Cloudy joint fluid noted in op report--> FOLLOW UP JOINT FLUID CULTURE -Making Machine Operator improved to baseline, ok to restart losartan -continue ASA, statin, losartan for CAD and HTN -hgb not significantly dropped, no need for transfusion likely -glucose improved ASA 81 bid for DVT proph -if has high fever, would recommend blood cultures, UA/Ur cx; checking C. diff antigen now for diarrhea -continue IS Documented By: Janna Arce (Janna Arce MD)
[2017-10-06 15:12] VITALS: BP 122/58; PULSE 64; TEMP 36.5; O2SAT 100
[2017-10-06 16:03] VITALS: TEMP 37
[2017-10-06 16:18] VITALS: TEMP 36.5
[2017-10-06 17:06] VITALS: TEMP 37.1
[2017-10-06] MEDS: SENNA 8.6 MG TAB PO SCH (19:57)
[2017-10-06] MEDS: ROSUVASTATIN CALCIUM 20 MG TAB PO SCH (19:58)
[2017-10-06] MEDS: INSULIN GLARGINE SOLOSTAR 100 UNITS/ML 3 ML PEN SQ SCH (21:51)
[2017-10-06 22:53] VITALS: BP 101/54; PULSE 73; TEMP 37; O2SAT 95
[2017-10-07] MEDS: ACETAMINOPHEN 500 MG TAB PO SCH ×4 (00:11→23:13)
[2017-10-07] MEDS: LEVOTHYROXINE 200 MCG TAB PO SCH (05:19)
[2017-10-07 07:47] VITALS: BP 104/67; PULSE 80; TEMP 37.2; O2SAT 95
[2017-10-07 07:50] VITALS: O2SAT 95
[2017-10-07] MEDS: INSULIN ASPART 100 UNITS/ML 3 ML PEN SC SCH ×4 (08:00→20:45)
--- NOTE | 2017-10-07 08:06 | Anesthesiology Progress Note ---
Anesthesia Post Op Note Date & Time Oct 07, 2017 at 08:06 Vital Signs Vital Signs Past 12 Hours Date Time Temp Pulse Resp B/P (MAP) Pulse Ox O2 Delivery O2 Flow Rate FiO2 10/07/17 07:50 95 Room Air 10/07/17 07:47 37.2 80 14 104/67 (79) 95 Room Air 10/06/17 22:53 37.0 73 18 101/54 (70) 95 Room Air 10/06/17 20:22 Room Air Notes Mental Status: alert / awake / arousable, participated in evaluation Pt Amnestic to Procedure: Yes Nausea / Vomiting: adequately controlled Pain: adequately controlled Airway Patency, RR, SpO2: stable & adequate BP & HR: stable & adequate Hydration State: stable & adequate Neuraxial Anesthesia: was administered, sensory block resolved Anesthetic Complications: no major complications apparent
[2017-10-07] MEDS: FERROUS GLUCONATE 324 MG TAB PO SCH ×3 (08:30→17:45)
[2017-10-07] MEDS: MULTIVITAMIN TAB PO SCH (09:00)
[2017-10-07] MEDS: PANTOprazole SOD 40 MG TAB PO SCH (09:00)
[2017-10-07] MEDS: DOCUSATE SODIUM 100 MG CAP PO SCH ×2 (09:00→21:00)
[2017-10-07] MEDS: LOSARTAN POTASSIUM 50 MG TAB PO SCH (09:00)
[2017-10-07] MEDS: ASPIRIN 81 MG ECTAB PO SCH ×2 (09:00→21:21)
--- NOTE | 2017-10-07 09:14 | Orthopedic Progress Note ---
Orthopedic Progress Note Date of Service Oct 07, 2017. Subjective Post OP Day: 3 Reports: feeling well Additional Notes: States she has some chills yesterday along with some diarrhea. Feeling a little better today. Pain controlled. I spoke with Dr Arce about pt's current joint culture taken during procedure. It now has come back positive for P.Aeruginosa that is pansensitive. Discussed with patient that she would need to likely be on 6 weeks of antibx. Pt understands. Objective calves soft nontender, splint C/D/I, incision C/D/I, A&O x3, toes mobile Date Time Temp Pulse Resp B/P (MAP) Pulse Ox O2 Delivery O2 Flow Rate FiO2 10/07/17 07:50 95 Room Air 10/07/17 07:47 37.2 80 14 104/67 (79) 95 Room Air 10/06/17 22:53 37.0 73 18 101/54 (70) 95 Room Air 10/06/17 20:22 Room Air 10/06/17 17:06 37.1 10/06/17 16:18 36.5 10/06/17 16:03 37.0 10/06/17 15:15 Room Air 10/06/17 15:12 36.5 64 18 122/58 (79) 100 Room Air Laboratory Results 24 Hours: Test 10/07/17 08:26 Assessment & Plan Assessment: POD# SP REVISION RIGHT RANDY INFECTED RIGHT RANDY Plan: I DISCUSSED THE CASE WITH DR LANDRY. NO FURTHER PLANS FOR SURGERY AT THIS TIME. WE WILL CONSULT ID TEAM WHO CAN MAKE FINAL DECISION ON ANTIBX. ANTIBX STARTED AT THIS TIME. WILL AWAIT RECOMMENDATIONS. CONTINUE PT/OT CONTINUE PLANS FOR SNF/REHAB CASE DISCUSSED WITH DR ARCE. APPRECIATE MED SERVICE COVERAGE.
--- NOTE | 2017-10-07 10:13 | Progress Note ---
Progress Note Date of Service Oct 07, 2017. Progress Note ID Consult Dictated #[id number] A/P: 1. Post op hip infection - pseudomonas -Continue cipro, can change to po when tolerating diet -Would give 4 weeks -Will check baseline sed rate -Continue local wound care -Can follow with ID post d/c\ -Thank you
[2017-10-07 10:29] LABS: HEMATOCRIT 35.2 % (37-47); HEMOGLOBIN 11.2 g/dL (12.0-16.0); MEAN CELL VOLUME 97.5 fL (80-100); MEAN CORPUSCULAR HGB CONC 31.8 g/dl (32-36); MEAN PLATELET VOLUME 9.8 fL (7.4-10.4); PLATELET COUNT 169 K/uL (130-400); RED CELL DISTRIBUTION WIDTH CV 15.1 % (11.5-14.5); RED CELL DISTRIBUTION WIDTH SD 53.3 fL (36.4-46.3); WHITE BLOOD COUNT 7.64 K/uL (4.8-10.8)
[2017-10-07 10:53] LABS: CALCIUM 8.2 mg/dl (8.5-10.1); CREATININE 1.52 mg/dl (0.60-1.20); POTASSIUM 4.5 mmol/L (3.5-5.1)
[2017-10-07 11:25] VITALS: BP 125/59; PULSE 70; TEMP 37.1; O2SAT 96
--- NOTE | 2017-10-07 11:54 | INFECT. DISEASE CONSULTATION ---
DATE OF CONSULTATION: 10/07/2017 HISTORY OF PRESENT ILLNESS: This is an 82-year-old female who was admitted electively for a revision of right hip replacement. She states that she had her right hip surgery done 2 years ago and intermittently has been having increasing pain. She recently saw Dr. Gatica for a second opinion and it was decided that she would require revision secondary to loosening hardware and persistent pain. This was scheduled electively for the . She underwent the procedure without difficulty. In the OR, some cloudy fluid was encountered and cultures were obtained. These are growing pansensitive pseudomonas. The patient is currently on IV Cipro. She states overall she is feeling much better. She denies any fevers or chills. She does states she believes she had an infection in the hip previously, but states she was not on any antibiotics at the time of admission. She has no fevers or chills. She states she has minimal pain in the hip. She was out of bed to chair this morning and did have some nausea. She is feeling much better now that she is back in bed. She did not eat breakfast. She did have an elevated leukocytosis on the of 12.9, but this was postoperative. checked her creatinine as well. It is mildly elevated and appears to be chronic. She currently denies any cough, chest pain, shortness of breath or diarrhea. She has minimal nausea, but states overall this is improved since getting back to bed. She denies any abdominal pain. She has minimal pain in the hip and only with movement. All remaining review of systems is reviewed and is unremarkable. She is tolerating antibiotics. SOCIAL HISTORY: Significant for a history of tobacco use. She denies any alcohol or drug use. ALLERGIES: SHE IS ALLERGIC TO ATORVASTATIN, EZETIMIBE, PIOGLITAZONE, DULOXETINE, AND NSAIDS. PAST MEDICAL HISTORY: Significant for hip replacement, type 2 diabetes, chronic kidney disease, hypertension and hypothyroidism. CURRENT MEDICATIONS: Include Cipro, Cozaar, glucagon, multivitamins, Protonix, Synthroid, Lantus, Crestor, Senokot, Colace, aspirin, iron, insulin, Tylenol, morphine, oxycodone, Dulcolax, Maalox, Zofran and tramadol. PHYSICAL EXAMINATION: VITAL SIGNS: She is afebrile, pulse 80, respiratory rate 14, blood pressure 104/67, and oxygen saturation is 95% on room air. GENERAL: She is awake, alert and oriented x3. She is in no acute distress. HEENT: Mucous membranes are moist. Extraocular muscles are intact. HEART: Regular. LUNGS: Clear. ABDOMEN: Soft, nontender, and nondistended. There is no edema bilaterally. SKIN: Without rash. PELVIC: Examination of the right hip reveals amarilis to be clean, dry and intact. There is a dressing on the inferior portion of her wound, which is clean, dry and intact. There is no surrounding warmth, tenderness, fluctuance, induration, erythema, or edema. LABORATORY STUDIES: CBC yesterday reveals a white blood cell count of 12.9, hemoglobin 11.5, and platelets 199. Chemistry panel on the reveals a sodium of 142, potassium 4.3, chloride 112, bicarbonate 20, BUN 31, creatinine 1.5, and glucose 124. UA was negative on admission. C. diff was negative on the . OR culture from the is growing pansensitive pseudomonas. Hip x-ray done on the shows postop alignment of hardware. ASSESSMENT AND PLAN: Right hip infection with pseudomonas. At this time, she will remain on Cipro that can be changed to oral. If she is tolerating her diet, she will likely need a minimum of 4 weeks. She certainly can follow with ID post-discharge from the hospital. A baseline sed rate will be checked at this time. Thank you for this consultation. ROSALIND
[2017-10-07] MEDS: CIPROFLOXACIN / D5W 400 MG in PREMIXED IN D5W 200 ML IV SCH ×2 (12:05→21:20)
[2017-10-07 13:37] VITALS: BP 118/68; PULSE 79; O2SAT 97
--- NOTE | 2017-10-07 14:37 | Discharge Instructions ---
Discharge Instructions Date of Service Oct 07, 2017. Admission Reason for Admission: Right Hip Osteoarthritis Discharge Discharge Diagnosis / Problem: Loosening Right RANDY likely due to infection Discharge Goals Goal(s): Decrease discomfort, Improve function, Increase independence Activity Recommendations Activity Level: Assistance Required Therapies: Physical Therapy (RANDY protocols/precautions), Occupational Therapy ( ADL) Weightbearing Status: Right weightbearing (as tolerated) . Additional Information Patient informed of condition: Yes Advance Directives: Yes DNR: No Level of Care: Skilled Communicable Disease: No Prognosis: Stable Parry Catheter: No Instructions / Follow-Up Instructions / Follow-Up ACTIVITY RECOMMENDATIONS: SELF CARE INSTRUCTIONS AFTER TOTAL HIP REPLACEMENT Until the incision and soft tissues around your hip have healed, there is a possibility that the hip prosthesis could dislocate. A. Observe the following precautions to prevent dislocation: 1. Don't bend your hip greater than 90 degrees. 2. Avoid crossing your legs or ankles while standing or lying. 3. Sit with your feet placed 6 inches apart. 4. When sitting, keep your knees below your hips. Sit on a firm surface, avoid deep, soft chairs and couches. Use an elevated toilet seat in the bathroom. 5. Don't bend over at the waist. Use a long handled shoehorn and a sock aid to help you put on your shoes and socks. A project management can help you waste picker objects that are too high or too low to reach. 6. Keep car riding to a minimum for at least one month after surgery. B. Your balance may be shaky for a while. Use crutches or a walker until directed by your doctor. C. Use hand rails when walking on stairs. D. Wear low heeled shoes with non-slip soles. E. Be sure that your floors are free of things that could trip you - throw rugs , electrical cords, small objects. Avoid wet and waxed floors, especially with crutches and canes. F. Try to walk several times a day with rest periods between. G. Continue with all the exercises taught to you in the hospital. Again, make walking a part of your daily routine. SPECIAL CARE INSTRUCTIONS: VERY IMPORTANT TO READ AND REVIEW A. You may still be at risk for phlebitis and blood clots. 1. Wear surgical stockings (ABHISHEK hose) for 2 weeks after surgery to improve circulation and reduce swelling. 2. Take Aspirin 81mg twice daily for 4 weeks or as directed by your doctor. This is your blood thinner. 3. High risk patients may be prescribed a stronger blood thinner if necessary. 4. If you are on Coumadin normally, your family doctor/lip reading teacher should monitor your blood work. Expect a phone call the day of or the day after bloodwork is drawn to adjust your dosage. B. You must take antibiotics before having dental work, bladder, bowel and other surgery. Your doctor will provide you with a permanent card to carry describing precautions. C. Call [facility] if you have a fever, redness or swelling around the incision, cloudy drainage from incision, or sudden increase in pain in your hip, not relieved by your regular pain medication. D. Please call the office at if you have any concerns or questions about your operation or recovery. * YOU MAY SHOWER, NO TUB BATHS UNTIL CLEARED BY YOUR DOCTOR. * WEAR ABHISHEK HOSE 20 HOURS PER DAY FOR 2 WEEKS. * YOU SHOULD USE A WALKER OR CRUTCHES FOR 2-4 WEEKS. THIS WILL HELP PREVENT STRAIN ON YOUR HIP MUSCLE AND ALLOW IT TO HEAL PROPERLY. YOU MAY WEAN TO A CANE TOLERATED. * MOST PATIENTS WILL HAVE HOME NURSING FOR THERAPY. IF YOU DECIDE TO DO OUTPATIENT PHYSICAL THERAPY, PLEASE SCHEDULE THIS 3 TIMES PER WEEK. * DRESSING CHANGE DAILY. IF WOUND IS DRY, YOU MAY LEAVE TO THE OPEN AIR . FOLLOW UP VISIT: If appointment is not already scheduled: Please call [facility] to make a follow-up appointment for 2 weeks after your surgery at . Current Hospital Diet Patient's current hospital diet: Diabetes Type 2 Diet Discharge Diet Recommended Diet: Diabetes Type 2 Diet Procedures Procedures Performed: Femoral head and stem revision, right hip Pending Studies Studies pending at discharge: no Physician Orders On Transfer Dressing Changes: DAILY Vital Signs: ROUTINE Laboratory Results Hemoglobin A1c Test 09/30/17 09:00 Range/Units Estimated Average Glucose 146 mg/dl Hemoglobin A1c 6.7 H 4.5-5.6 % Medical Emergencies . Who to Call and When: Medical Emergencies: If at any time you feel your situation is an emergency, please call 911 immediately. . Non-Emergent Contact Non-Emergency issues call your: Surgeon Call Non-Emergent contact if: temperature is above 101.5, your pain is not controlled, your pain is worsening, wound has increased drainage, wound has increased redness . . "Provider Documentation" section prepared by Cachorro Pope. . Core Measure Problem Core Measures: None [place] Drug Monitoring Program Search Results: patient reviewed within database, no issues identified
[2017-10-07] MEDS ORDERED: ACET-24 PO (14:41)
[2017-10-07] MEDS ORDERED: PRT40 PO (14:41)
[2017-10-07] MEDS ORDERED: ASPI81TA28 PO (14:41)
[2017-10-07] MEDS ORDERED: CLC100 PO (14:41)
[2017-10-07] MEDS ORDERED: RXC5 PO (14:41)
[2017-10-07] MEDS ORDERED: CIPR-255 PO (14:41)
[2017-10-07 15:05] VITALS: BP 102/65; PULSE 68; TEMP 37.1; O2SAT 97
--- NOTE | 2017-10-07 18:30 | Family Medicine Progress Note ---
Progress Note Date of Service Oct 07, 2017. Subjective Pt evaluation today including: conversation w/ patient, physical exam, chart review, lab review, review of inpatient medication list Pain: Minimal pain reported in right hip PO Intake: Tolerating PO intake Voiding: no voiding problems Ms. Bee states she had an episode of vomiting this morning after her breakfast. She had diarrhea yesterday but has not had any episodes of diarrhea today. She also reports feeling unwell with chills yesterday and today. Otherwise, she states the pain is well controlled in her right hip and she is able to weight bear. Constitutional: + chills, No weakness, No fatigue Respiratory: No cough, No sputum, No wheezing, No shortness of breath Cardiovascular: No chest pain, No orthopnea, No PND Abdomen: No pain, No nausea, No vomiting, No diarrhea All Other Systems: Reviewed and Negative Medications Current Inpatient Medications Medications (Trade) Dose Ordered Sig/Dago Route Start Time Stop Time Status Last Admin Dose Admin Insulin Glargine (Lantus Solostar Pen) 40 units HS SQ 10/04/17 21:00 11/03/17 20:59 10/06/17 21:51 40 UNITS Levothyroxine Sodium (Synthroid Tab) 200 mcg DAILYBB PO 10/05/17 06:00 11/04/17 05:59 10/07/17 05:19 200 MCG Rosuvastatin Calcium (Crestor Tab) 40 mg HS PO 10/04/17 21:00 11/03/17 20:59 10/06/17 19:58 40 MG Morphine Sulfate (MoRPHine SULFATE INJ) 2 mg Q4HWA PRN IV 10/04/17 13:15 10/18/17 13:14 Morphine Sulfate (MoRPHine SULFATE INJ) 4 mg Q4HWA PRN IV 10/04/17 13:15 10/18/17 13:14 Oxycodone HCl (Roxicodone Immediate Rel Tab) 1 TABLET FOR PAIN RATING... Q4H PRN PO 10/04/17 13:15 10/18/17 13:14 10/06/17 18:52 5 MG Acetaminophen (Tylenol Tab) 1,000 mg Q8H PO 10/04/17 16:00 11/03/17 15:59 10/07/17 15:44 1,000 MG Magnesium Hydroxide (Milk Of Magnesia Susp) 30 ml Q6H PRN PO 10/04/17 13:15 11/03/17 13:14 Bisacodyl (Dulcolax Supp) 10 mg DAILY PRN OR 10/04/17 13:15 11/03/17 13:14 Senna (Senokot Tab) 17.2 mg HS PO 10/04/17 21:00 11/03/17 20:59 10/05/17 20:33 17.2 MG Docusate Sodium (coLACE CAP) 100 mg BID PO 10/04/17 21:00 11/03/17 20:59 10/05/17 20:32 100 MG Al Hydrox/Mg Hydrox/Simethicone (Maalox Max Susp) 15 ml Q4H PRN PO 10/04/17 13:15 11/03/17 13:14 Multivitamins (Multivitamin Tab) 1 tab QAM PO 10/05/17 09:00 11/04/17 08:59 10/06/17 08:15 1 TAB Ondansetron HCl (Zofran Inj) 4 mg Q6H PRN IV 10/04/17 13:15 11/03/17 13:14 10/07/17 12:05 4 MG Ferrous Gluconate (Ferrous Gluconate Tab) 324 mg TIDM PO 10/04/17 17:45 11/03/17 17:59 10/06/17 12:32 324 MG Pantoprazole Sodium (Protonix Tab) 40 mg QAM PO 10/05/17 09:00 11/04/17 08:59 10/06/17 08:15 40 MG Tramadol HCl (Ultram Tab) 1 TABLET FOR PAIN RATING... Q4H PRN PO 10/04/17 13:15 11/03/17 13:14 Aspirin (Ecotrin Tab) 81 mg BID PO 10/04/17 21:00 11/03/17 20:59 10/06/17 19:58 81 MG Insulin Aspart (novoLOG ASPART) SLIDING SCALE PARAMETER ACHS SC 10/04/17 17:15 11/03/17 17:14 10/06/17 18:30 1 UNITS Losartan Potassium (coZAAR TAB) 100 mg QAM PO 10/06/17 09:00 11/04/17 08:59 10/06/17 08:16 100 MG Glucose (Glucose 40% Gel) 15-30 GRAMS 15 GRAMS... UD PRN PO 10/05/17 14:30 11/04/17 14:29 Glucose (Glucose Chew Tab) 4-8 Tablets 4 Tabl... UD PRN PO 10/05/17 14:30 11/04/17 14:29 Dextrose (Dextrose 50% 50ML Syringe) 25-50ML OF 50% DW IV FOR... UD PRN IV 10/05/17 14:30 11/04/17 14:29 Glucagon (Glucagon Inj) 1 mg UD PRN SQ 10/05/17 14:30 11/04/17 14:29 Ciprofloxacin/ Dextrose 400 mg/ Prmx 200 ml @ 100 mls/hr Q12@0900,2100 IV 10/07/17 09:00 11/18/17 08:59 10/07/17 12:05 100 MLS/HR Objective Vital Signs Date Time Temp Pulse Resp B/P (MAP) Pulse Ox O2 Delivery O2 Flow Rate FiO2 10/07/17 15:10 Room Air 10/07/17 15:05 37.1 68 18 102/65 (77) 97 Room Air 10/07/17 13:37 79 97 10/07/17 11:25 37.1 70 16 125/59 (81) 96 Room Air 10/07/17 08:30 Room Air 10/07/17 07:50 95 Room Air 10/07/17 07:47 37.2 80 14 104/67 (79) 95 Room Air 10/06/17 22:53 37.0 73 18 101/54 (70) 95 Room Air 10/06/17 20:22 Room Air Physical Exam General Appearance: WD/WN, no apparent distress Respiratory/Chest: chest non-tender, lungs clear, normal breath sounds, no respiratory distress, no accessory muscle use Cardiovascular: regular rate, rhythm, no edema, no gallop, no JVD, no murmur Abdomen: normal bowel sounds, non tender, soft, no organomegaly, no pulsatile mass Extremities: + pertinent finding (right hip with amarilis in place. no erythema or drainage from wound) Laboratory Results Last 24 Hours Test 10/06/17 21:08 10/07/17 08:18 10/07/17 09:55 10/07/17 11:44 Bedside Glucose 111 mg/dl 77 mg/dl 89 mg/dl White Blood Count 7.64 K/uL Red Blood Count 3.61 M/uL Hemoglobin 11.2 g/dL Hematocrit 35.2 % Mean Corpuscular Volume 97.5 fL Mean Corpuscular Hemoglobin 31.0 pg Mean Corpuscular Hemoglobin Concent 31.8 g/dl RDW Standard Deviation 53.3 fL RDW Coefficient of Variation 15.1 % Platelet Count 169 K/uL Mean Platelet Volume 9.8 fL Erythrocyte Sedimentation Rate 48 mm/hr Sodium Level 137 mmol/L Potassium Level 4.5 mmol/L Chloride Level 107 mmol/L Carbon Dioxide Level 21 mmol/L Anion Gap 9.0 mmol/L Blood Urea Nitrogen 28 mg/dl Creatinine 1.52 mg/dl Est Creatinine Clear Calc Drug Dose 39.1 ml/min Estimated GFR () 36.9 Estimated GFR (Non- 31.8 BUN/Creatinine Ratio 18.2 Random Glucose 95 mg/dl Calcium Level 8.2 mg/dl Test 10/07/17 16:59 Bedside Glucose 73 mg/dl Assessment and Plan Ms. Bee is a steve 82 year old woman here for revision of loosening hardware in her right hip 10/04. Post op - hemoglobin stable at 11.5 - bowels moving, pain well controlled - discharge likely tomorrow rehabilitation at [facility] in [place]. - joint aspirate grew pseudomonas - receiving IV cipro now and will switch to 500mg Q12H for 28 days - this dosage was cleared with pharmacy given her decreased kidney function DM - A1c 09/30= 6.7 - continue lantus 40 U HS and sliding scale - glucose between 73 and 11 - bsg ac&hs - continue gabapentin for diabetic neuropathy CKD IV - avoid nephrotoxic agents - Creatinine improved from 1.77 to 1.5 CAD - mild to moderate without need for stenting - medically managed with asa, erin and statin therapy. - metoprolol d/jericho in [place] about 2-3 weeks ago after admission there HTN - continue losartan 100 mg daily, and Crestor 40 mg daily Hypothyroid - continue home dose levothyroxine VTE Prophylaxis: ASA 81 mg BID, teds, scds CODE STATUS: FULL CODE Disposition: d/c tomorrow Resident Tracking Resident Involvement: Resident Care Provided Care Provided: Adult Hospital Medicine Reviewed: Pt Seen/Exam by Me History Resident Physician Supervision Note: I interviewed and examined the patient. Discussed with Dr. Gonzales and agree with findings and plan as documented in the note. Any exceptions or clarifications are listed here: Remains afebrile, no more chills today. Had N/V this AM which is now completely resolved. No abd pain, doing well. Growing Pseudomonas on joint fluid culture. DIscussed case with Ortho PA today. Vitals reviewed NAD, obese RRR no mgr CTAB no wcr ABd +BS, soft NT ND Ext no edema, calves nontender, rt hip incision with amarilis in place, no erythema or drainage from wound 82 yo female with a h/o HTN, obesity, DMII, nonobstructive CAD, hypothyroidism, CKD stage III (baseline instructional support services director 1.7 in outpt records), here POD#3 s/p revision right RANDY. 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
[2017-10-07] MEDS ORDERED: FURO-85 PO (18:41)
[2017-10-07] MEDS: INSULIN GLARGINE SOLOSTAR 100 UNITS/ML 3 ML PEN SQ SCH (21:00)
[2017-10-07] MEDS: SENNA 8.6 MG TAB PO SCH (21:00)
[2017-10-07] MEDS: ROSUVASTATIN CALCIUM 20 MG TAB PO SCH (21:22)
[2017-10-07 23:00] VITALS: BP 136/78; PULSE 68; TEMP 36.7; O2SAT 99
[2017-10-08] MEDS: LEVOTHYROXINE 200 MCG TAB PO SCH (05:55)
[2017-10-08 06:21] LABS: HEMATOCRIT 35.3 % (37-47); HEMOGLOBIN 11.1 g/dL (12.0-16.0); MEAN CELL VOLUME 98.1 fL (80-100); MEAN CORPUSCULAR HEMOGLOBIN 30.8 pg (25-34); MEAN CORPUSCULAR HGB CONC 31.4 g/dl (32-36); MEAN PLATELET VOLUME 9.4 fL (7.4-10.4); PLATELET COUNT 164 K/uL (130-400); RED CELL DISTRIBUTION WIDTH SD 53.3 fL (36.4-46.3)
[2017-10-08 06:52] LABS: CALCIUM 8.2 mg/dl (8.5-10.1); CREATININE 1.51 mg/dl (0.60-1.20)
[2017-10-08 07:10] VITALS: BP 116/58; PULSE 67; TEMP 36.8; O2SAT 97
--- NOTE | 2017-10-08 07:50 | Orthopedic Progress Note ---
Orthopedic Progress Note Date of Service Oct 08, 2017. Subjective Post OP Day: 4 Reports: feeling well, Denies: complaints Additional Notes: No more episodes of chills/ nausea. Feeling well this AM. Changed dc plans to [facility]. Objective calves soft nontender, N/V intact, hip located, incision C/D/I, A&O x3, toes mobile Date Time Temp Pulse Resp B/P (MAP) Pulse Ox O2 Delivery O2 Flow Rate FiO2 10/07/17 23:15 Room Air 10/07/17 23:00 36.7 68 18 136/78 (97) 99 Room Air 10/07/17 15:10 Room Air 10/07/17 15:05 37.1 68 18 102/65 (77) 97 Room Air 10/07/17 13:37 79 97 10/07/17 11:25 37.1 70 16 125/59 (81) 96 Room Air 10/07/17 08:30 Room Air 10/07/17 07:50 95 Room Air 10/07/17 07:47 37.2 80 14 104/67 (79) 95 Room Air Laboratory Results 24 Hours: Test 10/07/17 09:55 10/08/17 06:04 Hematocrit 35.2 % 35.3 % Hemoglobin 11.2 g/dL 11.1 g/dL Assessment & Plan Assessment: POD#4 SP REVISION RIGHT RANDY INFECTED RIGHT RANDY Plan: Pt seen by ID. Planning for Cipro bid for 4 weeks. Await clearance for [facility] Possible dc today if transfer approved.
[2017-10-08] MEDS: INSULIN ASPART 100 UNITS/ML 3 ML PEN SC SCH ×2 (08:00→12:00)
[2017-10-08] MEDS: FERROUS GLUCONATE 324 MG TAB PO SCH ×2 (09:25→12:47)
[2017-10-08] MEDS: ACETAMINOPHEN 500 MG TAB PO SCH (09:26)
[2017-10-08] MEDS: ASPIRIN 81 MG ECTAB PO SCH (09:28)
[2017-10-08] MEDS: MULTIVITAMIN TAB PO SCH (09:28)
[2017-10-08] MEDS: PANTOprazole SOD 40 MG TAB PO SCH (09:28)
[2017-10-08] MEDS: DOCUSATE SODIUM 100 MG CAP PO SCH (09:28)
[2017-10-08] MEDS: LOSARTAN POTASSIUM 50 MG TAB PO SCH (09:28)
[2017-10-08] MEDS: CIPROFLOXACIN / D5W 400 MG in PREMIXED IN D5W 200 ML IV SCH (09:29)
[2017-10-08 12:29] VITALS: BP 116/58; PULSE 67; TEMP 36.8; O2SAT 97
--- NOTE | 2017-10-08 14:01 | Family Medicine Progress Note ---
Progress Note Date of Service Oct 08, 2017. Subjective Pt evaluation today including: conversation w/ patient, physical exam, chart review, lab review, review of inpatient medication list Pain: No pain reported PO Intake: Tolerating PO intake Voiding: no voiding problems Ms. Bee reports she feels well today. She has not had any episodes of vomiting or diarrhea today, has been eating and drinking well, and states the pain in her hip is well controlled. She is able to ambulate without pain. She denies chest pain, shortness of breath, fever, chills, nausea, dizziness or syncope. She states that she would like to be discharged to [facility]. Constitutional: No fever, No chills, No sweats, No weight loss Respiratory: No cough, No sputum, No wheezing, No shortness of breath Abdomen: No pain, No nausea, No vomiting, No diarrhea All Other Systems: Reviewed and Negative Objective Vital Signs Date Time Temp Pulse Resp B/P (MAP) Pulse Ox O2 Delivery O2 Flow Rate FiO2 10/08/17 12:29 36.8 67 18 97 Room Air 10/08/17 08:30 Room Air 10/08/17 07:10 36.8 67 18 116/58 (77) 97 Room Air 10/07/17 23:15 Room Air 10/07/17 23:00 36.7 68 18 136/78 (97) 99 Room Air Physical Exam General Appearance: WD/WN, no apparent distress Respiratory/Chest: chest non-tender, lungs clear, normal breath sounds, no respiratory distress, no accessory muscle use Cardiovascular: regular rate, rhythm, no edema, no gallop, no JVD, no murmur Abdomen: normal bowel sounds, non tender, soft, no organomegaly, no pulsatile mass Extremities: + pertinent finding (right hip w/dressing that is c/d/i) Laboratory Results Last 24 Hours Test 10/07/17 16:59 10/07/17 20:38 10/08/17 06:04 10/08/17 07:18 Bedside Glucose 73 mg/dl 77 mg/dl 76 mg/dl White Blood Count 7.70 K/uL Red Blood Count 3.60 M/uL Hemoglobin 11.1 g/dL Hematocrit 35.3 % Mean Corpuscular Volume 98.1 fL Mean Corpuscular Hemoglobin 30.8 pg Mean Corpuscular Hemoglobin Concent 31.4 g/dl RDW Standard Deviation 53.3 fL RDW Coefficient of Variation 15.0 % Platelet Count 164 K/uL Mean Platelet Volume 9.4 fL Sodium Level 139 mmol/L Potassium Level 4.0 mmol/L Chloride Level 109 mmol/L Carbon Dioxide Level 22 mmol/L Anion Gap 8.0 mmol/L Blood Urea Nitrogen 24 mg/dl Creatinine 1.51 mg/dl Est Creatinine Clear Calc Drug Dose 39.3 ml/min Estimated GFR () 37.2 Estimated GFR (Non- 32.1 BUN/Creatinine Ratio 15.8 Random Glucose 77 mg/dl Calcium Level 8.2 mg/dl Test 10/08/17 12:00 Bedside Glucose 136 mg/dl Assessment and Plan Ms. Bee is a steve 82 year old woman here for revision of loosening hardware in her right hip 10/04. Post op - hemoglobin stable at 11.1 - bowels moving, pain well controlled - discharge today to [facility] - joint aspirate grew pseudomonas - discharged on 500mg Q12H for 28 days - this dosage was cleared with pharmacy given her decreased kidney function and she will f/u with ID in outpatient setting DM - A1c 09/30= 6.7 - continue lantus 40 U HS and sliding scale - bsg ac&hs - continue gabapentin for diabetic neuropathy CKD IV - avoid nephrotoxic agents - Creatinine 1.51 - seems to be around her baseline CAD - mild to moderate without need for stenting - medically managed with asa, erin and statin therapy. - metoprolol d/jericho in [place] about 2-3 weeks ago after admission there HTN - continue losartan 100 mg daily, and Crestor 40 mg daily Hypothyroid - continue home dose levothyroxine VTE Prophylaxis: ASA 81 mg BID, teds, scds CODE STATUS: FULL CODE Disposition: discharged to [facility] Resident Tracking Resident Involvement: Resident Care Provided Care Provided: Adult Hospital Medicine
--- NOTE | 2017-10-17 12:00 | DISCHARGE SUMMARY ---
DISCHARGE DIAGNOSIS: Infected right total hip arthroplasty. SECONDARY DIAGNOSES: Bradycardia, type 2 diabetes mellitus, stage IV chronic kidney disease, depression, obesity, hyperlipidemia. CONSULTS: MAYDA Acuna/Dr. Quique Meneses M.D. COMPLICATIONS: None. PROCEDURES: Revision right femoral component with intraoperative cultures. BRIEF HISTORY: As dictated in history and physical. HOSPITAL SUMMARY: The patient was admitted on the above date and had the above-noted surgery performed which she tolerated well. On her first postoperative day, she was feeling well and had no complaints. Calves were soft and nontender, neurovascularly intact. Hip was located. Dressings clean, dry and intact. Toes were mobile. Vital signs were stable. She was afebrile and hemoglobin was 10.7. WBCs were 12.9. She was started on physical therapy protocol and continued on DVT prophylaxis and pain management. By her second postoperative day, she was feeling well and calves were soft, nontender, neurovascular was intact. Dressings clean, dry and intact. Toes were mobile. Vital signs were stable. She was afebrile. Hemoglobin was 11.5, white count was still around 12.9. It was noted that the patient was starting to show gram negative rods on her culture, which was Pseudomonas aeruginosa. At that point in time the patient was started on Cipro which was noted to be sensitive on micros and Dr. Page was consulted for infectious disease consult. The patient was continued on her PT protocol and plans were to await ID input for final antibiotic choice. The patient would need anywhere from 4-6 weeks of either p.o. or IV antibiotics depending upon which was chosen and this was discussed with the patient in detail. I discussed the case with Dr. Gatica at that time and there was no further plans for washouts, etc. Plans were for antibiotics at this time. Dr. Page had seen the patient and the plans were for oral Cipro for 4 weeks. She otherwise continued to remain medically stable and by 10/08/2017 she was feeling well. She had had a few episodes of chills and nausea the previous days, but was not having any more. She was initially planning for home health, but then changed to [facility]. Calves were soft and nontender. Neurovascularly intact. Hip was located. Incision was clean, dry and intact. Toes were mobile. Vital signs were stable. She is afebrile. She was otherwise remaining stable medically and orthopedically and it was felt she could be transferred to [facility] for further physical therapy care and continued antibiotics for her hip infection. For further review, please see chart. LAB AND X-RAY DATA: As per chart. DISCHARGE INSTRUCTIONS: The patient was discharged to [facility] on 10/08/2017. DIET: Diabetic. ACTIVITY: Weightbearing as tolerated right lower extremity. Follow RANDY instruction sheets and special care instructions as noted. The patient to follow up in [address] Gatica. The patient to call for appointment if one has not been made for you. The patient also to follow up with Dr. Page in 2 weeks. The patient to call for appointment. DISCHARGE MEDICATIONS: Acetaminophen 1000 mg p.o. q. 8 hours, ciprofloxacin 500 mg p.o. b.i.d. for 28 days, Colace 100 mg p.o. b.i.d., oxycodone 5-10 mg p.o. q. 4 hours p.r.n., pantoprazole 40 mg p.o. q.a.m. for 10 days. Resume home meds as listed and change aspirin to 81 mg p.o. b.i.d. for 30 days and then resume once daily dosing as before, furosemide 20 mg p.o. 2-3 times a week for 30 days, stop taking 650 mg dose of Tylenol.
== END 2017-10-08 13:45 | DRG 467 ==
LOC: C.ACU 08:14 → C.MSW 10:06 → ENRESERV 13:55
PROC: 0SRR0J9 Replacement of Right Hip Joint, Femoral Surface with Synthetic Substitute, Cemented, Open Approach (ICD-10-PCS; principal; 2017-10-04 10:55)
PROC: 0SPR0JZ Removal of Synthetic Substitute from Right Hip Joint, Femoral Surface, Open Approach (ICD-10-PCS; principal; 2017-10-04 10:55)
DX: T84.51XA Infection and inflammatory reaction due to internal right hip prosthesis, initial encounter (principal); N18.4 Chronic kidney disease, stage 4 (severe); T84.030A Mechanical loosening of internal right hip prosthetic joint, initial encounter; E78.5 Hyperlipidemia, unspecified; E11.21 Type 2 diabetes mellitus with diabetic nephropathy; I12.9 Hypertensive chronic kidney disease with stage 1 through stage 4 chronic kidney disease, or unspecified chronic kidney disease; E03.9 Hypothyroidism, unspecified; Z87.891 Personal history of nicotine dependence; Y79.2 Prosthetic and other implants, materials and accessory orthopedic devices associated with adverse incidents; Y92.019 Unspecified place in single-family (private) house as the place of occurrence of the external cause; Z79.84 Long term (current) use of oral hypoglycemic drugs; B96.5 Pseudomonas (aeruginosa) (mallei) (pseudomallei) as the cause of diseases classified elsewhere; I25.10 Atherosclerotic heart disease of native coronary artery without angina pectoris; Z96.641 Presence of right artificial hip joint; E66.9 Obesity, unspecified; Z68.37 Body mass index [BMI] 37.0-37.9, adult